=== PATIENT | male | born 1970 | race Caucasian/White ===

== ENCOUNTER 2024-08-17 12:59 | Emergency (ER) | payer OTHER ==
[~2024-08-17] VITALS: Ht 188 cm; Wt 136.1 kg
[2024-08-17 13:06] VITALS: BP 156/97; PULSE 102; RESP 16; TEMP 97.8; O2SAT 96
[2024-08-17] MEDS ORDERED: NAPR-1704 PO (14:28)
[2024-08-17] MEDS: KETOROLAC 30 MG/ML VIAL IM ONE (14:39)
[2024-08-17 14:50] VITALS: BP 156/97; PULSE 102; RESP 16; TEMP 97.8; O2SAT 96
== END 2024-08-17 14:50 | disposition home or self-care (01) ==
LOC: MED 12:59 → EDBD 12:59 → MED 14:50
DX: M25.562 Pain in left knee (principal); Z79.899 Other long term (current) drug therapy
CPT/HCPCS: 29505; 73562; 96372; 99283; J1885; Q0092